=== PATIENT | male | born 2000 | race Hispanic/Latino ===

== ENCOUNTER 2023-12-21 14:23 | Emergency (ER) | payer OTHER ==
[~2023-12-21] VITALS: Ht 188 cm; Wt 133.8 kg
[2023-12-21 15:23] VITALS: PULSE 98; RESP 17; TEMP 99.3; O2SAT 98
[2023-12-21] MEDS ORDERED: LEVOFLOXACIN500 MG PO (15:46)
[2023-12-21] MEDS ORDERED: BACTRIM DS TAB1 EACH PO (15:46)
== END 2023-12-21 15:52 | disposition home or self-care (01) ==
LOC: ER 14:37
DX: R50.9 Fever, unspecified (principal); L03.116 Cellulitis of left lower limb; Z87.19 Personal history of other diseases of the digestive system
CPT/HCPCS: 99282